=== PATIENT | male | born 1995 | race Caucasian/White ===

== ENCOUNTER 2023-02-28 14:07 | Emergency (ER) | payer MEDICARE, MEDICAID, SELFPAY ==
--- NOTE | ~2023-02-28 | XR_ITS ---
EXAMINATION: XR HAND, LEFT CLINICAL INFORMATION: Acute left hand pain COMPARISON: None available. TECHNIQUE: PA, lateral, and oblique views of the left hand. FINDINGS: The bones and soft tissues are normal. No fracture. Alignment is anatomic. Joint spaces are maintained. No erosions or soft tissue calcifications. XR/XR hand LT min 3V IMPRESSION: Normal left hand.
[2023-02-28 14:15] VITALS: BP 140/72; PULSE 118; PULSE 87; RESP 20; TEMP 36.8; O2SAT 98; BMI 25.8
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
--- NOTE | 2023-02-28 14:51 | MHC.EDTECH ---
Patient walked out of Exam room. Tech asked him where he was going, The patient stated The bathroom the tech asked him hold on a moment, I informed him, we do need a urine sample. Patient continued into the bathroom and used the restroom. Patient came back from the bathroom. On the phone with a friend, came out and stated he would like his things. He is now laying down in his Room.
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
[2023-02-28 16:58] LABS: Ethanol 221 mg/dL
--- NOTE | 2023-02-28 17:14 | PC.NURSE ---
pt continues to report that he wants to leave. pt demanding, irritable, and continually swearing at staff to get his fucking stuff . pt denies HI/SI. pt reporting he has no transport or anywhere to go but he doesnt want to stay here . pt informed t/w that he is not doing anything we can keep him for
--- NOTE | 2023-02-28 18:30 | MHC.RECOVSUP ---
Met with pt in ED18. Pt informs he only wants to go to [facility]. [facility] currently [facility] no beds, pt will be dc and call from home with help from his mother and casey saw operator Obed.
[2023-02-28 18:36] VITALS: BP 118/63; PULSE 68; RESP 18; O2SAT 100
[2023-02-28 18:58] LABS: Amphetamine Screen Urine Not Detected (Not Detect); Barbiturates, Urine Not Detected (Not Detect); Benzodiazepines Screen Urine Not Detected (Not Detect); Cannabinoid Screen Urine POSITIVE (Not Detect); Cocaine Screen Urine Not Detected (Not Detect); Fentanyl, urine Not Detected (Not Detect); Opiate Screen Urine Not Detected (Not Detect); Phencyclidine Screen Urine Not Detected (Not Detect)
--- NOTE | 2023-02-28 19:08 | PC.NURSE ---
soil sort worker #[phone]
--- NOTE | 2023-02-28 19:31 | PC.NURSE ---
Pt calm and cooperative, D/C instructions give with resource papers given by care team, my mother is my ride . Pt ambulatory with steady gait.
--- NOTE | 2023-02-28 21:50 | MHC.RECOVSUP ---
? Reason for consult:Recovery Support o ?Current location: ED 18? o Identified substance use concern: AUD? - Support ? ?Intervention: o Community resources provided o Harm reduction discussion ? Additional information:?other sports coach or instructor met with pt and reviewed harm reduction strategies along with his options for treatment. Pt wanted to leave and drink knowing the medical complications it can cause. Community resources were given and discussed. Patients mother was in the waiting room and wanted to speak with the middle school football coach, unfortunately middle school football coach denied to speak with family member at this time.
== END 2023-02-28 19:35 | disposition home or self-care (01) ==
PROVIDERS: Emergency Provider Emergency Medicine
DX: F10.129 Alcohol abuse with intoxication, unspecified (principal); M79.642 Pain in left hand; Y90.7 Blood alcohol level of 200-239 mg/100 ml; F12.90 Cannabis use, unspecified, uncomplicated
CPT/HCPCS: 36415; 73130; 80307; 82077; 99284